=== PATIENT | male | born 1970 | race Caucasian/White ===

== ENCOUNTER 2021-05-04 17:06 | Emergency (ER) | payer OTHER ==
[2021-05-04] MEDS ORDERED: Boostrix 0.5 ML (Tdap) VIAL ONE (17:21)
[2021-05-04] MEDS ORDERED: Lidocaine 1% w/Epinephrine 1:100K 20 ML VIAL ONE (17:47)
[2021-05-04] MEDS ORDERED: Sulfameth/Trimethoprim DS 800-160mg TAB ONE (18:20)
[2021-05-04] MEDS ORDERED: Bacitracin 1 PK ONE ×2 (19:29→19:32)
== END 2021-05-04 19:43 | disposition home or self-care (01) ==
LOC: ERS 17:06
DX: S71.111A Laceration without foreign body, right thigh, initial encounter (principal); K21.9 Gastro-esophageal reflux disease without esophagitis; Z79.899 Other long term (current) drug therapy; X58.XXXA Exposure to other specified factors, initial encounter
CPT/HCPCS: 12001; 12032; 90471; 90715